=== PATIENT | male | born 1940 | race Caucasian/White ===

== ENCOUNTER 2018-10-08 17:19 | Inpatient (IN) | payer OTHER, MEDICAID, BC ==
[~2018-10-08] VITALS: Ht 172.7 cm; Wt 75.7 kg
[2018-10-08 17:40] VITALS: BP 125/60
--- NOTE | 2018-10-08 17:52 | NUR ---
Patient ambulated to bed 1. RN evaluating patient at bedside.
--- NOTE | 2018-10-08 18:00 | NUR ---
bib son; complaints of generalized weakness, poor appetite, body aches x 2 weeks. pcp advised to bring to ER. hx: STROKE LEFT SIDED, dementia, htn, cholesterol, prostate, cataracts, blind right eye, PATIENT STATES PAIN OF 7/10 AT THIS TIME; PATIENT POSITIONED FOR COMFORT; HOB ELEVATED; BEDRAILS UP X2; BED DOWN. ER MD MADE AWARE OF PT STATUS.
[2018-10-08 18:26] LABS: BASOPHILS # (AUTO) 0.1 K/uL (0.00-0.22); EOSINOPHILS # (AUTO) 0.2 K/uL (0-0.4); EOSINOPHILS % (AUTO) 3.5 % (0.0-4.0); HEMATOCRIT 40.2 % (36-52); HEMOGLOBIN 13.5 g/dL (12.0-18.0); LYMPHOCYTES % (AUTO) 29.2 % (20.5-51.1); MEAN CORPUSCULAR HEMOGLOBIN 30 pg (27-31); MEAN CORPUSCULAR HGB CONC 34 g/dL (33-37); MEAN CORPUSCULAR VOLUME 90.3 fL (80-94); MONOCYTES # (AUTO) 0.9 K/uL (0.8-1.0); MONOCYTES % (AUTO) 12.5 % (1.7-9.3); NEUTROPHILS # (AUTO) 3.7 K/uL (1.8-7.7); NEUTROPHILS % (AUTO) 53.8 % (42.2-75.2); PLATELET COUNT (AUTO) 176 K/uL (140-450); RED BLOOD CELL COUNT(AUTO) 4.45 MIL/uL (4.20-6.10); RED CELL DISTRIBUTION WIDTH 14.3 % (11.6-13.7); WHITE BLOOD COUNT (AUTO) 6.9 K/uL (4.8-10.8)
[2018-10-08 18:27] LABS: APPEARANCE,URINE CLEAR (CLEAR); BILIRUBIN,URINE NEGATIVE (NEGATIVE); BLOOD, URINE 3+ (NEGATIVE); COLOR,URINE YELLOW (YELLOW); LEUKOCYTE ESTERASE ,URINE TRACE (NEGATIVE); NITRITE, URINE NEGATIVE (NEGATIVE); UGLUCOSE NEGATIVE (NEGATIVE)
[2018-10-08 18:42] LABS: WBC,URINE 0-5 /HPF (0-5)
[2018-10-08 18:43] LABS: RBC,URINE >20 (MANY) /HPF (0-5)
[2018-10-08 18:45] LABS: PROTHROMBIN TIME 10.4 secs (10.8-13.4)
[2018-10-08 19:02] LABS: ALBUMIN 3.2 g/dL (3.4-5.0); ASPARTATE AMINOTRANSFERASE 13 U/L (15-37); CARBON DIOXIDE 26.2 mmol/L (21-32); CREATININE 1.9 mg/dL (0.7-1.3); GLUCOSE 87 mg/dL (74-106); TOTAL BILIRUBIN 1.1 mg/dL (0.0-1.0); UREA NITROGEN, BLOOD 22 mg/dL (7-18)
--- NOTE | 2018-10-08 19:19 | NUR ---
Pt report given to ALEJANDRA SCOTT. Transfer of care at this time.
--- NOTE | 2018-10-08 19:20 | NUR ---
report recieved from TYLER Diaz. Transfer of care at this time.
--- NOTE | 2018-10-08 19:28 | NUR ---
Dr. Rush evaluating patient at bedside.
[2018-10-08 19:36] LABS: POTASSIUM 3.1 mmol/L (3.5-5.1); SODIUM SERUM 140 mmol/L (136-145)
[2018-10-08 19:37] LABS: ANION GAP 13.9 (8-16); CHLORIDE 103 mmol/L (98-107)
--- NOTE | 2018-10-08 20:16 | NUR ---
PT TAKEN TO CT.
--- NOTE | 2018-10-08 20:26 | NUR ---
PT RETURNED FROM CT.
--- NOTE | 2018-10-08 20:45 | NUR ---
Pt awake and lying in bed. HOB elevated for comfort. VSS. family at bedside. bedrails x2 up. will continue to monitor.
--- NOTE | 2018-10-08 21:15 | NUR ---
PT MOVED TO BED 2
--- NOTE | 2018-10-08 21:36 | NUR ---
Pt bradycardic, non-symptomatic. Will continue to monitor.
[2018-10-08] MEDS ORDERED: POTASSIUM CHLORIDE 10 MEQ TABER PO ONE (21:45)
--- NOTE | 2018-10-08 21:48 | NUR ---
Patient will be admitted to care of . Admited to [facility]. Will go to room 128A. VSS at time of transfer. Belongings list completed. Report to TYLER Paul. Transfer of care at this time.
[2018-10-08 21:53] VITALS: BP 183/78
--- NOTE | 2018-10-08 21:53 | NUR ---
REPORT RECEIVED FROM ER NURSE, ALEJANDRA. CC GEN WEAKNESS X 2 WEEKS, DX FAILURE TO THRIVE. PT AWAKE, ALERT AND ORIENTED X3. TELE MONITORING. PT WALKED FROM GURNEY TO BED, UNSTEADY GAIT. PT WALKER AT BESIDE. ORIENTED PT TO HOSPITAL ROUTINE. REPOSITIONED PT FOR COMFORT. IV RT AC 20G SALINE LOCKED. PT CHANGED INTO YELLOW GOWN, YELLOW SOCKS, YELLOW WRIST BAND PLACED AND BED ALARM ON. PT BP 183/78 AND HR 45, MD NOTIFIED. CALL LIGHT WITHIN REACH. WILL CONTINUE TO MONITOR.
[2018-10-08] MEDS ORDERED: MORPHINE SULFATE 2 MG/ML SYR IVP PRN (22:05)
[2018-10-08] MEDS ORDERED: DOCUSATE SODIUM 100 MG GELCAP PO PRN (22:05)
[2018-10-08] MEDS ORDERED: ACETAMINOPHEN 325 MG TAB PO PRN (22:05)
[2018-10-08] MEDS ORDERED: LORazepam 2 MG/ML VIAL IM/IVP PRN (22:05)
[2018-10-08] MEDS ORDERED: HYDROcodone/APAP 5/325 MG 1 TAB TAB PO PRN (22:05)
[2018-10-08] MEDS ORDERED: ONDANSETRON 4 MG/2 ML VIAL IM/IVP PRN (22:05)
[2018-10-08] MEDS ORDERED: MEDICATION REC. PHARMACY CONS. 1 EA MISC MC PRN (22:10)
[2018-10-08] MEDS ORDERED: MELATONIN 3 MG TAB PO PRN (22:10)
[2018-10-08 22:31] LABS: MAGNESIUM 2.3 mg/dL (1.8-2.4); PHOSPHORUS 3.9 mg/dL (2.5-4.9)
[2018-10-08] MEDS: NACL 0.9% 1,000 ML IV SCH (23:07)
[2018-10-08] MEDS ORDERED: ENALAPRILAT 2.5 MG/2 ML VIAL IVP PRN (23:45)
--- NOTE | 2018-10-08 23:45 | NUR ---
PT PULLED OUT IV 20G RT AC. NEW IV ACCESS STARTED ON RT FOREARM 22G. WILL CONTINUE TO MONITOR.
[2018-10-09 00:25] VITALS: BP 186/109
--- NOTE | 2018-10-09 00:29 | NUR ---
PT BP 186/109, HR 44. PT IS ASYMPTOMATIC AT THIS TIME. VERIFIED WITH MD THAT OKAY TO GIVE PRN VASOTEC DUE TO HR <65. PER OKAY TO GIVE. WILL RECHECK IN 1H.
[2018-10-09] MEDS ORDERED: hydrALAZINE 10 MG TAB PO PRN (01:15)
--- NOTE | 2018-10-09 01:29 | NUR ---
PT BP RECHECKED 176/73, HR 43. DR. CHI, RESIDENT AWARE. WILL CONTINUE TO MONITOR
--- NOTE | 2018-10-09 03:00 | NUR ---
PT ASLEEP AT THIS TIME BUT EASILY AROUSABLE. BREATHING EQUAL AND UNLABORED. NO VISIBLE SIGNS OF DISTRESS. WILL CONTINUE TO MONITOR.
[2018-10-09 04:06] VITALS: BP 138/72
--- NOTE | 2018-10-09 04:06 | NUR ---
PT BP 138/72, HR 50. WILL CONTINUE TO MONITOR
[2018-10-09 06:09] LABS: BASOPHILS % (AUTO) 0.8 % (0.0-2.0); EOSINOPHILS # (AUTO) 0.3 K/uL (0-0.4); EOSINOPHILS % (AUTO) 4.3 % (0.0-4.0); HEMATOCRIT 40.8 % (36-52); HEMOGLOBIN 13.7 g/dL (12.0-18.0); LYMPHOCYTES # (AUTO) 1.7 K/uL (2.0-11.5); LYMPHOCYTES % (AUTO) 28.4 % (20.5-51.1); MEAN CORPUSCULAR HEMOGLOBIN 30 pg (27-31); MEAN CORPUSCULAR HGB CONC 34 g/dL (33-37); MEAN CORPUSCULAR VOLUME 89.4 fL (80-94); MONOCYTES # (AUTO) 0.8 K/uL (0.8-1.0); MONOCYTES % (AUTO) 13.6 % (1.7-9.3); NEUTROPHILS # (AUTO) 3.2 K/uL (1.8-7.7); NEUTROPHILS % (AUTO) 52.9 % (42.2-75.2); PLATELET COUNT (AUTO) 167 K/uL (140-450); RED BLOOD CELL COUNT(AUTO) 4.56 MIL/uL (4.20-6.10); RED CELL DISTRIBUTION WIDTH 14.1 % (11.6-13.7)
--- NOTE | 2018-10-09 06:20 | NUR ---
PT ASKED FOR FOOD. HAD SOME PUDDING AND APPLE JUICE. TOLERATED WELL.
[2018-10-09 06:35] LABS: ANION GAP 10.4 (8-16); CARBON DIOXIDE 29.2 mmol/L (21-32); CHLORIDE 110 mmol/L (98-107); CREATININE 1.5 mg/dL (0.7-1.3); GLUCOSE 84 mg/dL (74-106); POTASSIUM 3.6 mmol/L (3.5-5.1); SODIUM SERUM 146 mmol/L (136-145); UREA NITROGEN, BLOOD 19 mg/dL (7-18)
--- NOTE | 2018-10-09 07:22 | NUR ---
ENDORSED PT TO AM NURSESEDA. PT IN STABLE CONDITION.
[2018-10-09 08:00] VITALS: BP 177/54
--- NOTE | 2018-10-09 08:10 | NUR ---
DR. CORRAL NOTIFIED OF PATIENT SBP >170 WITH SB IN LOW 50S, 40S. PRN MEDICATION OUT OF RANGE, NEW ORDERS RECEIVED. TO FOLLOW.
[2018-10-09] MEDS: LACTOBACILLUS RHAMNOSUS GG 1 EACH CAP PO SCH (08:15)
--- NOTE | 2018-10-09 08:19 | NUR ---
PATIENT HAS BEEN SCREENED AND CATEGORIZED HIGH NUTRITION RISK. PATIENT WILL BE SEEN WITHIN 1-2 DAYS OF ADMISSION. 10/09/18-10/10/[address]
[2018-10-09] MEDS ORDERED: hydrALAZINE 25 MG TAB PO PRN (08:35)
[2018-10-09] MEDS ORDERED: hydrALAZINE 25 MG TAB ONE (08:43)
[2018-10-09] MEDS ORDERED: hydrALAZINE 25 MG TAB PO SCH (09:00)
--- NOTE | 2018-10-09 10:10 | NUR ---
PATIENT RESTING IN BED, AWAKENS TO LIGHT STIMULI, ALERT TO SELF. PERIODS OF CONFUSION. BEDREST, OFFLOADED PRESSURE AREAS. SKIN KEPT CLEAN AND DRY. NO ACUTE DISTRESS NOTED.
[2018-10-09] MEDS ORDERED: DIT5 PO (11:57)
[2018-10-09] MEDS ORDERED: DONE5TAB6 PO (11:57)
[2018-10-09] MEDS ORDERED: HYDR-3293 PO (11:57)
[2018-10-09] MEDS ORDERED: ATOR40TA PO (11:57)
[2018-10-09] MEDS ORDERED: BRIM5SOL2 OP (11:57)
[2018-10-09] MEDS ORDERED: TAMS0.4C96 PO (11:57)
[2018-10-09 12:00] VITALS: BP 142/48
--- NOTE | 2018-10-09 12:00 | NUR ---
PATIENT'S FAMILY AT BEDSIDE, SEEN BY DR. CUMMINGS. UPDATED PATIENT ON CURRENT PLAN OF CARE, IN AGREEMENT. MD AWARE OF PATIENT'S LOW HR, HOME MEDICATIONS RECONCILED, MD TO PLACE NEW ORDERS.
[2018-10-09] MEDS ORDERED: HYDROCHLOROTHIAZIDE 25 MG TAB PO SCH ×2 (12:30→20:30)
[2018-10-09] MEDS ORDERED: LOSARTAN 50 MG TAB PO SCH (12:30)
--- NOTE | 2018-10-09 14:39 | NUR ---
S.T. Bedside swallow eval completed See report for details. Pt presents w/ adequate oropharyngeal swallow function. No overt s/s aspiration observed across all textures. Pt is able to self-feed. Recommend: 1) Continue regular diet textures, thin liquids as tolerated. 2) P.O. meds as tolerated. 3) Defer to medicine team re: dietary restrictions No further tx indicated at this time. [facility] Time [id number]
--- NOTE | 2018-10-09 14:54 | NUR ---
PATIENT RESTING IN BED. SB ON MONITOR, DR. CUMMINGS AWARE, NEW ORDERS RECEIVED, EKG ORDERED. CONTINUE TO MONITOR.
--- NOTE | 2018-10-09 15:48 | NUR ---
10/09/18 RD INITIAL ASSESSMENT COMPLETED PLEASE REFER TO NUTRITION ASSESSMENT UNDER CARE ACTIVITY FOR ESTIMATED NUTRITIONAL NEEDS. 1. CONTINUE REGULAR DIET TOLERATED 2. IF PO INTAKE <75% CONSIDER ENSURE BID 3. RD WILL PROVIDE GENERAL NUTRITION ON FOLLOW UP VISIT 4. RD TO FOLLOW-UP 3-5 DAYS, MODERATE RISK [address]OW[address]
[2018-10-09 16:00] VITALS: BP 146/61
--- NOTE | 2018-10-09 16:50 | NUR ---
PATIENT ASSISTED IN CHANGING OF POSITIONS Q2H DURING SHIFT. LINENS CHANGED, SKIN KEPT CLEAN DRY AND INTACT. NO ACUTE DISTRESS NOTED.
[2018-10-09] MEDS: NACL 0.9% 1,000 ML IV SCH (17:50)
--- NOTE | 2018-10-09 19:21 | NUR ---
SBAR REPORT GIVEN TO TYLER ALMONTE AT PT BEDSIDE. PATIENT RESTING IN BED, NO ACUTE DISTRESS NOTED.
--- NOTE | 2018-10-09 19:22 | NUR ---
REPORT RECEIVED FROM AM NURSE AT BEDSIDE. PT IN STABLE CONDITION. AAOX2. INTRODUCED SELF TO PT. BOARD UPDATED. NO COMPLAINTS OF PAIN. NO SOB. AFEBRILE. IV SITE R FA 22G RUNNING NS@60ML/HR PATENT AND INTACT. SKIN WARM, DRY, AND INTACT WITH NO OPEN WOUNDS. BED LOCKED IN LOW POSITION. CALL HO WITHIN REACH. SAFETY PRECAUTIONS IN PLACE. BED ALARM ON. P IS LT EYE BLIND. WILL CONTINUE TO MONITOR.
--- NOTE | 2018-10-09 19:45 | NUR ---
PT HAS ELEVATED BP OF 173/73. NOTIFIED. AWAITING ORDERS.
[2018-10-09 20:00] VITALS: BP 173/73
--- NOTE | 2018-10-09 20:19 | NUR ---
HYDROCHLORTHIAZIDE AND ARICEPT GIVEN PO. COMBIGAN 1 DROP GIVEN IN EACH EYE. PT TOLERATED WELL. HYDROCHLORHIAZIDE GIVEN FOR INCREASED BP.
[2018-10-09] MEDS: BRIMONIDINE TARTRATE OP SCH (20:20)
[2018-10-09] MEDS: TIMOLOL OP SCH (20:20)
[2018-10-09] MEDS ORDERED: DONEPEZIL 10 MG TAB PO SCH (21:00)
--- NOTE | 2018-10-09 22:00 | NUR ---
PT LAYING IN BED SUPINE ATTEMPTING TO SLEEP. NO S/S OF DISTRESS NOTED. WILL CONTINUE TO MONITOR.
[2018-10-10] VITALS: BP 201/80
[2018-10-10] MEDS: hydrALAZINE 10 MG TAB PO SCH ×4 (00:04→18:11)
--- NOTE | 2018-10-10 00:04 | NUR ---
APRESOLINE GIVEN FOR INCREASED BP OF 201/80. PT TOLERATED WELL.
--- NOTE | 2018-10-10 01:47 | NUR ---
CATAPRES GIVEN FOR 201/80 BP. PT TOLERATED WELL. WILL REASSESS.
[2018-10-10] MEDS ORDERED: cloNIDine 0.1 MG TAB PO SCH (02:00)
--- NOTE | 2018-10-10 03:17 | NUR ---
BP REASSESS. BP 173/71 WITH HR 41. PT IS ASYMPTOMATIC STEPHANE. MD NOTIFIED. ORDERED TO WAIT UNTIL 6AM MED OF APRESOLINE.
[2018-10-10 04:00] VITALS: BP 173/71
--- NOTE | 2018-10-10 04:45 | NUR ---
PT LINEN CHANGE. NO S/S OF DISTRESS NOTED.
--- NOTE | 2018-10-10 05:08 | NUR ---
APRESOLINE GIVEN PO. PT BP 174/69.
[2018-10-10 06:50] LABS: BASOPHILS % (AUTO) 0.5 % (0.0-2.0); EOSINOPHILS # (AUTO) 0.3 K/uL (0-0.4); EOSINOPHILS % (AUTO) 4.3 % (0.0-4.0); HEMATOCRIT 41.5 % (36-52); HEMOGLOBIN 14.1 g/dL (12.0-18.0); LYMPHOCYTES # (AUTO) 1.9 K/uL (2.0-11.5); LYMPHOCYTES % (AUTO) 32.8 % (20.5-51.1); MEAN CORPUSCULAR HEMOGLOBIN 30 pg (27-31); MEAN CORPUSCULAR HGB CONC 34 g/dL (33-37); MEAN CORPUSCULAR VOLUME 89.3 fL (80-94); MONOCYTES # (AUTO) 0.6 K/uL (0.8-1.0); MONOCYTES % (AUTO) 10.5 % (1.7-9.3); NEUTROPHILS % (AUTO) 51.9 % (42.2-75.2); PLATELET COUNT (AUTO) 166 K/uL (140-450); RED BLOOD CELL COUNT(AUTO) 4.65 MIL/uL (4.20-6.10); RED CELL DISTRIBUTION WIDTH 13.8 % (11.6-13.7); WHITE BLOOD COUNT (AUTO) 5.9 K/uL (4.8-10.8)
--- NOTE | 2018-10-10 07:10 | NUR ---
PT REPORT RECEIVED FROM CONICAL MIXER NURSE. PT IS ASLEEP, NO S/S OF ANY ACUTE DISTRESS OR SOB NOTED. SKIN IS INTACT. IV SITE NOTED ON THE R FA, 22 G, INFUSING NS 60 ML/HR. ACCORDING TO CONICAL MIXER NURSE, PT HAS BEEN HYPERTENSIVE AND BRADYCARDIC, IS AWARE. WILL MONITOR. FALL PRECAUTIONS ARE IN PLACE, CALL LIGHT IS WITHIN REACH. WILL CONTINUE TO MONITOR PT.
[2018-10-10 07:11] LABS: ANION GAP 11.4 (8-16); CHLORIDE 109 mmol/L (98-107); CREATININE 1.4 mg/dL (0.7-1.3); GLUCOSE 88 mg/dL (74-106); POTASSIUM 3.4 mmol/L (3.5-5.1); SODIUM SERUM 145 mmol/L (136-145); UREA NITROGEN, BLOOD 19 mg/dL (7-18)
[2018-10-10] MEDS: NACL 0.9% 1,000 ML IV SCH (07:21)
--- NOTE | 2018-10-10 07:30 | NUR ---
REPORT GIVEN TO AM NURSE AT BEDSIDE. PT IN STABLE CONDITION.
--- NOTE | 2018-10-10 07:40 | NUR ---
PT GETTING KIDNEY US AT THIS TIME.
[2018-10-10 08:00] VITALS: BP 177/68
[2018-10-10 08:28] LABS: HEPATITIS A ANTIBODY IGM Negative (Negative); HEPATITIS B CORE AB TOTAL Negative (Negative); HEPATITIS B SURFACE ANTIBODY Non Reactive (.); HEPATITIS B SURFACE ANTIGEN Negative (Negative)
[2018-10-10] MEDS ORDERED: POTASSIUM CHLORIDE 10 MEQ TABER PO SCH (09:00)
[2018-10-10] MEDS ORDERED: HYDROCHLOROTHIAZIDE 25 MG TAB PO SCH (09:00)
--- NOTE | 2018-10-10 09:02 | NUR ---
PT'S HR IS 40 AT THIS TIME, GOING DOWN LOW 37 BPM. BP IS 173/[address] CUMMINGS IS AWARE, AND SHE SAID TO ADMINISTER PT'S SCHEDULED BP MEDS ORDERED. PT IS GOING TO HAVE A CARDIOLOGY CONSULT TODAY WITH DR. VANN.
[2018-10-10] MEDS: ATORVASTATIN 20 MG TAB PO SCH (09:08)
[2018-10-10] MEDS: OXYBUTYNIN 5 MG TAB PO SCH (09:08)
[2018-10-10] MEDS: TAMSULOSIN 0.4 MG CAP PO SCH (09:09)
[2018-10-10] MEDS: LOSARTAN 50 MG TAB PO SCH (09:09)
[2018-10-10] MEDS: LACTOBACILLUS RHAMNOSUS GG 1 EACH CAP PO SCH (09:09)
[2018-10-10] MEDS: HYDROCHLOROTHIAZIDE 25 MG TAB PO SCH (09:10)
[2018-10-10] MEDS: TIMOLOL OP SCH ×2 (09:20→21:10)
[2018-10-10] MEDS: BRIMONIDINE TARTRATE OP SCH ×2 (09:20→21:10)
--- NOTE | 2018-10-10 09:32 | NUR ---
SCHEDULED AM MEDS ADMINISTERED. PT TOLERATED WELL. PT IS RESTING COMFORTABLY IN BED AT THIS TIME.
--- NOTE | 2018-10-10 09:54 | NUR ---
PHYSICAL THERAPIST WORKING WITH PT AT THIS TIME
[2018-10-10 10:43] LABS: MAGNESIUM 2.2 mg/dL (1.8-2.4)
[2018-10-10 12:00] VITALS: BP 125/52
--- NOTE | 2018-10-10 14:33 | NUR ---
CALLED [facility] [phone] SPOKE WITH [facility] ADMITTING REGARDING PLACEMENT PER [facility] PT CAN GO TO ROOM 37B AND WILL BE RESPONSIBLE FOR TRANSPORT PAYMENT.
--- NOTE | 2018-10-10 15:58 | NUR ---
PT MOVED TO ROOM 121-B DUE TO TRYING TO GET UP OUT OF BED ON HIS OWN. PT IS BLIND IN THE R EYE, HAS GENERALIZED WEAKNESS, AND HAS HX OF DEMENTIA. HE NEEDS TO BE CLOSER TO THE NURSE'S STATION FOR SAFETY MONITORING.
[2018-10-10 16:00] VITALS: BP 152/64
--- NOTE | 2018-10-10 18:02 | NUR ---
PT'S BP IS 150/61 AT THIS TIME. SCHEDULED HYDRALAZINE ADMINISTERED.
--- NOTE | 2018-10-10 19:15 | NUR ---
PT ENDORSED TO HEALTHCARE PROJECT MANAGER IN STABLE CONDITION.
--- NOTE | 2018-10-10 19:16 | NUR ---
RECEIVED BEDSIDE REPORT FROM DAY SHIFT RN. Neela/OX3. ALERT AND ORIENTED TO PERSON, PLACE AND TIME. DISCUSSED POC WITH PT. VERBALIZED UNDERSTANDING. NO SIGNS OF RESP DISTRESS OR DISCOMFORT. ROOM AIR. TELE MONITOR. FALL RISK PREC IN PLACE. STANDARD PRECAUTIONS. R FA 22G NS @60. INFUSING WELL. CLEAN DRY AND INTACT. SKIN IS INTACT. BED IN LOW POSITION. CALL LIGHT WITHIN REACH. WILL CONTINUE TO MONITOR.
[2018-10-10] MEDS ORDERED: MELATONIN 3 MG TAB PO PRN (19:55)
[2018-10-10] MEDS ORDERED: QUEtiapine FUMARATE 25 MG TAB PO ONE (19:55)
[2018-10-10 20:00] VITALS: BP 157/66
--- NOTE | 2018-10-10 21:10 | NUR ---
ADMINISTERED PT EYE DROP MED/ EDUCATED ON SIDE EFFECTS. VERBALIZED UNDERSTANDING. TOLERATED WELL. REPOSITIONED IN BED. WILL CONTINUE TO MONITOR.
--- NOTE | 2018-10-10 22:21 | NUR ---
ASSISTED TO USE URINAL. CHANGED LINENS AND GOWN. REPOSITIONED IN BED. TOLERATED WELL. BED IN LOW POSITION. BED ALARM ON. CALL LIGHT WITHIN REACH. NO SIGNS OF RESP DISTRESS. WILL CONTINUE TO MONITOR.
[2018-10-11] VITALS (7 sets, daily range): BP systolic 132–172; BP diastolic 51–74
--- NOTE | 2018-10-11 00:10 | NUR ---
VITALS TAKEN. TOLERATED WELL. NS BAG COMPLETED AND REPLACED. RATE AT 60 ML/HR. NO COMPLAINTS. WILL CONTINUE TO MONITOR.
[2018-10-11] MEDS: hydrALAZINE 10 MG TAB PO SCH ×2 (00:33→05:20)
[2018-10-11] MEDS: NACL 0.9% 1,000 ML IV SCH ×2 (00:34→16:44)
--- NOTE | 2018-10-11 01:30 | NUR ---
CLEANED PT AND REPOSITIONED. ASSESSED WOUND ON SACRAL REGION. DRESSING WAS DRY AND INTACT. NO DRAINAGE NOTED. CLEANED WOUND AND APPLIED ZGUARD. APPLIED CLEAN NEW DRESSING. TOLERATED WELL. NO COMPLAINTS AT THIS TIME. WILL CONTINUE TO MONITOR. Addendum: 10/11/18 at 0216 by Lillie Hollis RN WRONG PATIENT. MEANT TO CHART ON 126A. CORRECTION: PT SLEEPING IN BED. EASILY AROUSABLE. NO DISTRESS NOTED. DENIES PAIN. WILL CONTINUE TO MONITOR.
--- NOTE | 2018-10-11 04:39 | NUR ---
CLEANED PT. CHANGED WET LINENS. REPOSITIONED IN BED. TOLERATED WELL. URINAL LEFT WITHIN REACH. NO PAIN. NO SINGS OF DISTRESS. WILL CONTINUE TO MONITOR.
--- NOTE | 2018-10-11 06:13 | NUR ---
PT SLEEPING IN BED. EASILY AROUSABLE. ABLE TO MAKE NEEDS KNOWN. NO SIGNS OF DISTRESS NOTED. WILL CONTINUE TO MONITOR.
[2018-10-11 06:51] LABS: MAGNESIUM 1.9 mg/dL (1.8-2.4); PHOSPHORUS 3.2 mg/dL (2.5-4.9)
[2018-10-11 06:53] LABS: BASOPHILS % (AUTO) 0.4 % (0.0-2.0); EOSINOPHILS # (AUTO) 0.3 K/uL (0-0.4); EOSINOPHILS % (AUTO) 3.8 % (0.0-4.0); HEMOGLOBIN 13.9 g/dL (12.0-18.0); LYMPHOCYTES # (AUTO) 2.3 K/uL (2.0-11.5); LYMPHOCYTES % (AUTO) 33.8 % (20.5-51.1); MEAN CORPUSCULAR HEMOGLOBIN 30 pg (27-31); MEAN CORPUSCULAR HGB CONC 34 g/dL (33-37); MEAN CORPUSCULAR VOLUME 89.6 fL (80-94); MONOCYTES # (AUTO) 0.5 K/uL (0.8-1.0); MONOCYTES % (AUTO) 7.2 % (1.7-9.3); NEUTROPHILS # (AUTO) 3.7 K/uL (1.8-7.7); NEUTROPHILS % (AUTO) 54.8 % (42.2-75.2); PLATELET COUNT (AUTO) 163 K/uL (140-450); RED BLOOD CELL COUNT(AUTO) 4.58 MIL/uL (4.20-6.10); WHITE BLOOD COUNT (AUTO) 6.7 K/uL (4.8-10.8)
[2018-10-11 07:12] LABS: ANION GAP 14.4 (8-16); CARBON DIOXIDE 24.1 mmol/L (21-32); CHLORIDE 109 mmol/L (98-107); CREATININE 1.3 mg/dL (0.7-1.3); GLUCOSE 85 mg/dL (74-106); POTASSIUM 3.5 mmol/L (3.5-5.1); SODIUM SERUM 144 mmol/L (136-145); UREA NITROGEN, BLOOD 22 mg/dL (7-18)
--- NOTE | 2018-10-11 07:20 | NUR ---
ENDORSED PT TO DAY SHIFT RN. PT IN STABLE CONDITION.
--- NOTE | 2018-10-11 07:21 | NUR ---
RECEIVED BEDSIDE REPORT FROM NIGHT NURSE. PT IS RESTING IN BED FREE OF SIGNS OF OBVIOUS DISTRESS. PT CURRENTLY HAS RIGHT FOREARM IV INFUSING 60ML/HR NORMAL SALINE. BREATHING IS EQUAL AND UNLABORED, ALL SAFETY MEASURES IN PLACE. PT AOX3.
[2018-10-11] MEDS: BRIMONIDINE TARTRATE OP SCH ×2 (08:38→21:10)
[2018-10-11] MEDS: LACTOBACILLUS RHAMNOSUS GG 1 EACH CAP PO SCH (08:38)
[2018-10-11] MEDS: HYDROCHLOROTHIAZIDE 25 MG TAB PO SCH (08:38)
[2018-10-11] MEDS: TIMOLOL OP SCH ×2 (08:38→21:10)
[2018-10-11] MEDS: OXYBUTYNIN 5 MG TAB PO SCH (08:39)
[2018-10-11] MEDS: LOSARTAN 50 MG TAB PO SCH (08:39)
[2018-10-11] MEDS: ATORVASTATIN 20 MG TAB PO SCH (08:39)
[2018-10-11] MEDS: TAMSULOSIN 0.4 MG CAP PO SCH (08:39)
--- NOTE | 2018-10-11 09:05 | NUR ---
ADMINISTERED MEDICATIONS, ALSO SPOKE TO PATIENTS PHONE ON THE PHONE WHILE AT BEDSIDE WITH PT. PT SON REQUESTED INFORMATION ABOUT HOW HIS FATHER IS DOING AND TO TELL THE PT THAT HE WOULD BE COMING BY TODAY. RELAYED ALL INFORMATION TO PT. PT IS WITHOUT REQUEST OR SIGNS OF DISTRESS AT THIS TIME.
--- NOTE | 2018-10-11 10:16 | NUR ---
PT CURRENTLY SLEEPING IN BED, BREATHING EQUAL AND UNLABORED AT THIS TIME.
[2018-10-11] MEDS: hydrALAZINE 25 MG TAB PO SCH ×2 (12:24→21:07)
--- NOTE | 2018-10-11 12:25 | NUR ---
ADMINISTERED MEDICATION, PT SITTING UP IN BED EATING LUNCH WITH NO SIGNS OF ACTIVE DISTRESS.
--- NOTE | 2018-10-11 13:31 | NUR ---
PT RESTING IN BED CURRENTLY WATCHING TV WITH NO OBVIOUS SIGNS OF DISTRESS.
--- NOTE | 2018-10-11 15:57 | NUR ---
PT RESTING IN BED WITH NO REQUESTS AT THIS TIME, FREE OF OBVIOUS SIGNS OF DISTRESS.
--- NOTE | 2018-10-11 17:24 | NUR ---
PT CURRENTLY SITTING IN BED WATCHING TV WITHOUT SIGNS OF OBVIOUS DISTRESS. DENIES ANY REQUESTS AT THIS TIME.
--- NOTE | 2018-10-11 19:24 | NUR ---
GAVE REPORT TO STORE MANAGEMENT TRAINEE NURSE FOR CONTINUITY OF CARE. PATIENT IN STABLE CONDITION.
--- NOTE | 2018-10-11 19:25 | NUR ---
RECEIVED REPORT FROM ENZO NURSENIKIA. PT IN SITTING IN BED, AWAKE, ALERT AND ORIENTED TO SELF. RT FOREARM 22G IV INTACT. URINAL AT BEDSIDE. SAFETY PRECAUTIONS IN PLACE, YELLOW GOWN, YELLOW SOCKS, YELLOW ARM BAND. SIDE RAILS UP X2, BED IN LOW POSITION. CALL LIGHT WITH IN REACH. WILL CONTINUE TO MONITOR.
--- NOTE | 2018-10-11 22:00 | NUR ---
ROUNDED ON PT. PT SLEEPING IN BED, NO VISIBLE SIGNS OF DISTRESS, BREATHING UNLABORED. WILL CONTINUE TO MONITOR.
[2018-10-12] VITALS: BP 137/64
--- NOTE | 2018-10-12 | NUR ---
VITAL SIGNS TAKEN. PT IN BED, NO SIGNS OF DISTRESS, BREATHING UNLABORED. WILL CONTINUE TO MONITOR.
--- NOTE | 2018-10-12 02:00 | NUR ---
PT PULLED OUT IV. IV 20G RT HAND INSERTED FOR ACCESS.
--- NOTE | 2018-10-12 04:01 | NUR ---
VITALS TAKEN. PT LAYING IN BED, AWAKE, ALERT AND ORIENTED TO SELF. NO C/O DISCOMFORT. ALL NEEDS ATTENDED TO. WILL CONTINUE TO MONITOR.
[2018-10-12 04:03] VITALS: BP 175/60
[2018-10-12] MEDS: hydrALAZINE 25 MG TAB PO SCH ×2 (04:40→12:34)
--- NOTE | 2018-10-12 05:30 | NUR ---
PT URINATED ON SELF. PT CLEANED AND CHANGE. PT REPOSITIONED FOR COMFORT. WILL CONTINUE TO MONITOR.
[2018-10-12 06:43] LABS: BASOPHILS % (AUTO) 0.4 % (0.0-2.0); EOSINOPHILS # (AUTO) 0.3 K/uL (0-0.4); EOSINOPHILS % (AUTO) 4.1 % (0.0-4.0); HEMATOCRIT 42.1 % (36-52); HEMOGLOBIN 14.4 g/dL (12.0-18.0); LYMPHOCYTES # (AUTO) 2.5 K/uL (2.0-11.5); LYMPHOCYTES % (AUTO) 31.4 % (20.5-51.1); MEAN CORPUSCULAR HEMOGLOBIN 30 pg (27-31); MEAN CORPUSCULAR HGB CONC 34 g/dL (33-37); MEAN CORPUSCULAR VOLUME 89.1 fL (80-94); MONOCYTES # (AUTO) 0.5 K/uL (0.8-1.0); MONOCYTES % (AUTO) 6.4 % (1.7-9.3); NEUTROPHILS # (AUTO) 4.7 K/uL (1.8-7.7); NEUTROPHILS % (AUTO) 57.7 % (42.2-75.2); PLATELET COUNT (AUTO) 165 K/uL (140-450); RED BLOOD CELL COUNT(AUTO) 4.73 MIL/uL (4.20-6.10); RED CELL DISTRIBUTION WIDTH 13.8 % (11.6-13.7)
[2018-10-12 06:49] LABS: MAGNESIUM 1.8 mg/dL (1.8-2.4); PHOSPHORUS 3.3 mg/dL (2.5-4.9)
--- NOTE | 2018-10-12 07:05 | NUR ---
ENDORSED TO AM MINNIE, REJI. PT IN STABLE CONDITION.
--- NOTE | 2018-10-12 07:06 | NUR ---
RECEIVED BEDSIDE REPORT FROM NIGHT NURSE. PT IS SITTING UP IN BED AOX3, IV SITE TO RIGHT HAND CURRENTLY INFUSING NS AT 60ML/HR ASYMPTOMATIC AND PATENT. BREATHING IS EQUAL AND UNLABORED WITH LUNG SOUNDS CLEAR. SKIN IS INTACT. ALL SAFETY MEASURES IN PLACE, CALL LIGHT WITHIN REACH AND POC REVIEWED IN PT PRESENCE.
--- NOTE | 2018-10-12 07:40 | NUR ---
PT REMOVED IV, ASSESSED IV CATHETER TO BE INTACT. PT STATES HE IS GOING HOME TODAY AND IS REFUSING NEW IV INSERTION AT THIS TIME. WILL NOTIFY .
[2018-10-12] MEDS ORDERED: HYDR100T79 PO (07:47)
[2018-10-12] MEDS ORDERED: HYDR-3293 PO (07:47)
[2018-10-12 08:00] VITALS: BP 158/55
[2018-10-12 08:08] LABS: ANION GAP 12.6 (8-16); CARBON DIOXIDE 23.6 mmol/L (21-32); CHLORIDE 109 mmol/L (98-107); CREATININE 1.3 mg/dL (0.7-1.3); GLUCOSE 85 mg/dL (74-106); POTASSIUM 3.2 mmol/L (3.5-5.1); SODIUM SERUM 142 mmol/L (136-145); UREA NITROGEN, BLOOD 20 mg/dL (7-18)
--- NOTE | 2018-10-12 08:10 | NUR ---
NOTIFIED MD CUMMINGS REGARDING PT REFUSAL FOR NEW IV INSERTION AFTER PT REMOVAL. ALSO MADE AWARE OF PENDING IV ANTIBIOTIC DOSAGE DUE. STATES IT IS FINE TO NOT INSERT ONE NOW IF HE CONTINUES TO REFUSE AND NOT ADMINISTER IV ANTIBIOTICS, AND TO CONTINUE TO ASK PT THROUGHOUT DAY UNTIL DISCHARGE IS COMPLETE IF HE WILL ACCEPT A NEW IV INSERTION.
[2018-10-12] MEDS: LACTOBACILLUS RHAMNOSUS GG 1 EACH CAP PO SCH (08:27)
[2018-10-12] MEDS: TAMSULOSIN 0.4 MG CAP PO SCH (08:27)
[2018-10-12] MEDS: OXYBUTYNIN 5 MG TAB PO SCH (08:27)
[2018-10-12] MEDS: LOSARTAN 50 MG TAB PO SCH (08:27)
[2018-10-12] MEDS: ATORVASTATIN 20 MG TAB PO SCH (08:27)
[2018-10-12] MEDS: HYDROCHLOROTHIAZIDE 25 MG TAB PO SCH (08:27)
[2018-10-12] MEDS: BRIMONIDINE TARTRATE OP SCH (08:28)
[2018-10-12] MEDS: TIMOLOL OP SCH (08:28)
[2018-10-12] MEDS: NACL 0.9% 1,000 ML IV SCH (08:36)
--- NOTE | 2018-10-12 08:38 | NUR ---
SCHEDULED MEDICATIONS ADMINISTERED. IV ROCEPHIN NOT ADMINISTERED-NO IV ACCESS. DR. CUMMINGS AWARE.
[2018-10-12] MEDS ORDERED: POTASSIUM CHLORIDE 10 MEQ TABER PO SCH (09:00)
--- NOTE | 2018-10-12 09:28 | NUR ---
SCREEN FOR LOW ANDREINA SCALE AT RISK, NO REDNESS NOTICE, PRESSURE INJURY PREVENTION INTERVENTIONS IN PLACE. -TURN AND REPOSITION PATIENT Q 2H OFFLOAD SACRALCOCCYX -ASSESS AND MONITOR SKIN CONDITION DURING POSITION CHANGE -OFFLOAD BILATERAL HEELS BY PLACING PILLOWS UNDER CALVES AT ALL TIMES, UNLESS OTHERWISE CONTRAINDICATED -PRESSURE REDISTRIBUTION BY PLACING PILLOWS -KEEP SKIN CLEAN AND DRY AT ALL TIMES.
--- NOTE | 2018-10-12 09:37 | NUR ---
ADMINISTERED MEDICATIONS PT SITTING UP TO CHAIR BREATHING EQUAL NO SIGNS OF DISTRESS.
--- NOTE | 2018-10-12 09:47 | NUR ---
RECEIVED PHONE CALL FROM PT SON ASKING ABOUT DC TODAY. INFORMED HIM THAT DC WAS PLANNED FOR TODAY TO [facility] AND I WOULD CALL HIM WHEN I FIND OUT MORE INFORMATION ABOUT DC ANTICIPATED TIME. Addendum: 10/12/18 at 1008 by Fany Madison Meng, RN [facility] NUMBER IS [phone]
--- NOTE | 2018-10-12 09:49 | NUR ---
RECEIVED PHONE CALL FROM FREDRICK REGARDING QUESTION IF SON WOULD PAY FOR PATIENTS DC TRANSPORTATION TO SNF. GAVE THEM SON'S NUMBER AT [phone] AND WAS TOLD THEY WOULD CALL HIM AND FIND OUT MORE.
--- NOTE | 2018-10-12 09:59 | NUR ---
CALLED [facility] SPOKE WITH BISI CATTLE DEHORNER ,PT CAN GO TO ROOM 37B ,TO GIVE REPORT [phone]. ARRANGED TRANSPORT WITH [facility] TEACHER TIME 2:30 PM . NOTIFIED CHARGE NURSE DAVID AND HIRO SCOTT. PER [facility] WILL PAY FOR IT. NOTIFIED [facility] TO [facility]
--- NOTE | 2018-10-12 10:01 | NUR ---
RECEIVED PHONE CALL FROM CM REGARDING ANTICIPATING TIME FOR DISCHARGE TO BE AT APPROXIMATELY [address] [facility] WOULD PROVIDE FREE TRANSPORTATION FOR PT AND THEY ALSO REQUESTED FOR AN ORDER BE PLACED FOR DC.
--- NOTE | 2018-10-12 10:54 | NUR ---
CALLED PT SON AT [phone] AND LEFT A VOICEMAIL PER SON'S REQUEST LETTING HIM KNOW THAT THE PT WOULD DISCHARGE AT AROUND 1430 TODAY.
[2018-10-12 12:00] VITALS: BP 145/52
--- NOTE | 2018-10-12 12:15 | NUR ---
PT SITTING IN CHAIR BY BED WATCHING TV WITH NO REQUESTS OR COMPLAINTS AT THIS TIME AND NO SIGNS OF OBVIOUS DISTRESS.
[2018-10-12 12:27] LABS: CARBON DIOXIDE 28.6 mmol/L (21-32); CHLORIDE 108 mmol/L (98-107); CREATININE 1.6 mg/dL (0.7-1.3); GLUCOSE 108 mg/dL (74-106); POTASSIUM 3.6 mmol/L (3.5-5.1); SODIUM SERUM 144 mmol/L (136-145); UREA NITROGEN, BLOOD 21 mg/dL (7-18)
--- NOTE | 2018-10-12 13:00 | NUR ---
DISCHARGE PAPERWORK, INCLUDING PLAN OF CARE AT SNF, GIVEN TO PATIENT. NEW PRESCRIPTION/MEDICATION TEACHING AND MEDICATION RECONCILIATION TEACHING GIVEN TO PATIENT. PT IS AOX3 AT THIS TIME. VERBALIZED COMPLETE UNDERSTANDING OF ALL D/C INSTRUCTIONS. REFUSED PNEUMOVAX. ALL PERSONAL BELONGINGS WITH PATIENT. HOME MEDICATION EYE DROPS PLACED WITH PT'S PERSONAL BELONGINGS AT BEDSIDE.
--- NOTE | 2018-10-12 14:08 | NUR ---
PT SITTING DOWN FREE OF SIGNS OF OBVIOUS DISTRESS WITH NO REQUESTS.
--- NOTE | 2018-10-12 14:17 | NUR ---
ATTEMPTED TO CONTACT [facility], WAS PUT ON HOLD AND TOLD TO SPEAK TO CITLALLI FOR SEVERAL MINUTES UNTIL [facility] DISCONNECTED CALL.
--- NOTE | 2018-10-12 14:38 | NUR ---
ATTEMPTED TO CONTACT BACK REQUESTING FOR CITLALLI AT [facility] FOR REPORT. NURSE UNAVAILABLE AT THIS TIME.
--- NOTE | 2018-10-12 16:18 | NUR ---
GAVE REPORT TO SHEELA [facility]. Addendum: 10/12/18 at 1620 by Fany Madison Meng, RN NIMESH SCOTT
== END 2018-10-12 15:20 | DRG 682 ==
LOC: MED 17:19 → MMU 21:28 → MTU 10-10 16:36
PROVIDERS: ADMIT General Practice; ATTEND General Practice
DX: N17.0 Acute kidney failure with tubular necrosis (principal); G93.41 Metabolic encephalopathy; I16.1 Hypertensive emergency; N39.0 Urinary tract infection, site not specified; E44.0 Moderate protein-calorie malnutrition; I69.954 Hemiplegia and hemiparesis following unspecified cerebrovascular disease affecting left non-dominant side; F03.90 Unspecified dementia, unspecified severity, without behavioral disturbance, psychotic disturbance, mood disturbance, and anxiety; E83.51 Hypocalcemia; E87.6 Hypokalemia; G89.29 Other chronic pain; I10 Essential (primary) hypertension; R62.7 Adult failure to thrive; R31.9 Hematuria, unspecified; E78.5 Hyperlipidemia, unspecified; E11.36 Type 2 diabetes mellitus with diabetic cataract; Z68.25 Body mass index [BMI] 25.0-25.9, adult
CPT/HCPCS: 36415; 70450; 71045; 76770; 80048; 80053; 81001; 82140; 82306; 82607; 82746; 83036; 83690; 83735; 83880; 84100; 84134; 84443; 84484; 85025; 85610; 85730; 86704; 86706; 86708; 86709; 86803; 87081; 87086; 87340; 92610; 93005; 93976; 97110; 97116; 97530; 99285; J0696; J3490; J7030; J7060; Q0092